=== PATIENT | female | born 1990 | race Caucasian/White ===

== ENCOUNTER → 2016-09-16 | Outpatient (CLI) | payer MEDICAID ==
--- NOTE | 2016-09-16 16:41 | US ---
EXAMINATION: Left breast ultrasound HISTORY: Lump COMPARISON: None TECHNIQUE: Grayscale and color Doppler images obtained of the left breast within the region of yfn rn. FINDINGS: There is a hypoechoic well-circumscribed parallel 5 x 7 mm homogeneous mass at the 9:00 po sition of the left breast. There is mild posterior acoustic enhancement and no internal color Dopple r flow identified. 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 Otherwise no sonographic abnormal ity identified. IMPRESSION: BI-RADS 3: Likely benign. 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 Follow-up in 6 months is recommended. Alternatively this is amenable to ultrasound-guid ed biopsy for a more definitive diagnosis.
== END ==
LOC: MW.US 09:26
PROVIDERS: ATTEND Advanced Practice Midwife
DX: N63 Unspecified lump in breast (principal)
CPT/HCPCS: 76641-LT; 76641-LT-26

== ENCOUNTER → 2016-11-10 | Outpatient (CLI) | payer MEDICAID ==
[2016-11-18 16:04] LABS: HPV 16 Not Detected (NOTDET); HPV 18 Not Detected (NOTDET)
== END ==
LOC: MW.CHOBGYN 11:44
PROVIDERS: ATTEND Advanced Practice Midwife
DX: Z12.4 Encounter for screening for malignant neoplasm of cervix (principal); N89.8 Other specified noninflammatory disorders of vagina
CPT/HCPCS: 87480; 87510; 87624; 87660; G0145